=== PATIENT | male | born 1955 | race Caucasian/White ===

== ENCOUNTER 2016-05-12 19:45 | Emergency (ER) | payer OTHER ==
[2016-05-12 20:22] VITALS: RESP 18; O2SAT 93
--- NOTE | 2016-05-12 20:25 | EDPHY ---
H & P Stated Complaint: 10 day of cramping to legs at night wt loss Time Seen by Provider: 05/12/16 20:24 - Personal History Current Tetanus/Diphtheria Vaccine: Yes Current Tetanus Diphtheria and Acellular Pertussis (TDAP): Yes - Medical/Surgical History Hx Asthma: No Hx Chronic Respiratory Disease: No Hx Diabetes: No Hx Cardiac Disease: No Hx Renal Disease: No Hx Cirrhosis: No Hx Alcoholism: No Hx HIV/AIDS: No Hx Splenectomy or Spleen Trauma: No Other PMH: hernia - Social History Smoking Status: Former smoker Constitutional: Initial Vital Signs Temperature (C) 36.7 C 05/12/16 20:13 Heart Rate 112 H 05/12/16 20:13 Respiratory Rate 18 05/12/16 20:13 Blood Pressure 155/81 H 05/12/16 20:13 O2 Sat (%) 93 05/12/16 20:13 O2 Delivery Mode Room Air Allergies/Adverse Reactions: No Known Allergies Allergy (Unverified 05/17/12 16:58) Home Medications: Medication Instructions Recorded Lisinopril 05/12/16 Omeprazole 05/12/16 Medical Decision Making ED Course/Re-evaluation: CHIEF COMPLAINT: Hyperglycemia HISTORY OF PRESENT ILLNESS: This patient is a 70 year old male referred to the Emergency Department by Dr. Ruff for elevated blood sugar self-measured in the low 400s earlier today. He complains of bilateral leg cramping that prevents him from sleeping. He denies headache, urinary frequency, fatigue, or additional complaints. No pertinent medical history. REVIEW OF SYSTEMS: A 10 point review of systems was performed and is negative with the exception of the elements mentioned in the history of present illness. PHYSICAL EXAM: HR 112, BP 155/81, O2 Sat 93%, RR 18. Temp noted General Appearance: Alert, well hydrated, appropriate, and non-toxic appearing. Head: Atraumatic without scalp tenderness or obvious injury Eyes: Pupils equal, round, reactive to light and accommodation, EOMI, no trauma , no injection. Ears: Clear bilaterally, no perforation, normal landmarks Nose: Atraumatic, no rhinorrhea, clear. Throat: There is no erythema or exudates, no lesions, normal tonsils, mucus membranes moist. Neck: Supple, 2+ carotid upstroke, nontender, no lymphadenopathy. Respiratory: No retractions, no distress, no wheezes, and no accessory muscle use. Lungs are clear to auscultation bilaterally. Cardiovascular: Regular rate and rhythm, no murmurs, rubs, or gallops. Bilateral carotid, radial, dorsalis pedis, and posterior tibial pulses intact. Good capillary refill all extremities. Gastrointestinal: Abdomen is soft, nontender, non-distended, no masses, no rebound, no guarding, no peritoneal signs. Musculoskeletal: Normal active ROM of all extremities, atraumatic. Neurological: Alert, appropriate, and interactive. The patient has normal DTRs and non-focal cranial nerves, motor, sensory, and cerebellar exam. Skin: No rashes, good turgor, no nodules on palpation. Past medical and surgical history: Hernia. Family history: Non-contributory. Social history: at bedside. DIFFERENTIAL DIAGNOSIS: Differential diagnosis for the patient's hyperglycemia includes but is not limited to pre-diabetes, diabetes type II, or ketoacidosis. MEDICAL DECISION MAKING: This 60 year old male was referred to the Emergency Department by Dr. Ruff for hyperglycemia suggestive of diabetes. There is no evidence of ketoacidosis. He complains of leg cramping for which we will administer 1mg Ativan. Will proceed with labs and start the patient on oral hypoglycemics. He will be discharged home in good condition with instructions to follow-up with Dr. Ruff this week for further evaluation. No evidence of diabetic ketoacidosis. Hyperglycemia. I will start this patient on metformin 850 mg twice daily and he will follow up with Dr. Ritika Ruff on . - Data Points Laboratory Results: Laboratory Results 05/12/16 20:40 05/12/16 20:40 05/12/16 20:40 WBC 6.40 10^3/uL (3.80-9.50) RBC 4.59 10^6/uL (4.40-6.38) Hgb 15.1 g/dL (13.7-17.5) Hct 40.8 % (40.0-51.0) MCV 88.9 fL (81.5-99.8) MCH 32.9 pg (27.9-34.1) MCHC 37.0 H g/dL (32.4-36.7) RDW 12.5 % (11.5-15.2) Plt Count 141 L 10^3/uL (150-400) MPV 9.4 fL (8.7-11.7) Neut % (Auto) 49.0 % (39.3-74.2) Lymph % (Auto) 35.3 % (15.0-45.0) [place] % (Auto) 9.1 % (4.5-13.0) Eos % (Auto) 3.0 % (0.6-7.6) Baso % (Auto) 0.6 % (0.3-1.7) Nucleat RBC Rel Count 0.0 % (0.0-0.2) Absolute Neuts (auto) 3.14 10^3/uL (1.70-6.50) Absolute Lymphs (auto) 2.26 10^3/uL (1.00-3.00) Absolute Monos (auto) 0.58 10^3/uL (0.30-0.80) Absolute Eos (auto) 0.19 10^3/uL (0.03-0.40) Absolute Basos (auto) 0.04 10^3/uL (0.02-0.10) Absolute Nucleated RBC 0.00 10^3/uL (0-0.01) Immature Gran % 3.0 H % (0.0-1.1) Immature Gran # 0.19 H 10^3/uL (0.00-0.10) Sodium 130 L mEq/L (134-144) Potassium 4.2 mEq/L (3.5-5.2) Chloride 100 mEq/L (97-110) Carbon Dioxide 19 L mEq/l (22-31) Anion Gap 11 mEq/L (8-16) BUN 21 mg/dL (7-23) Creatinine 0.9 mg/dL (0.7-1.3) Estimated GFR > 60 Glucose 391 H mg/dL (70-100) Hemoglobin A1c Pending Estim Average Glucose Pending Calcium 9.1 mg/dL (8.5-10.4) Total Bilirubin 1.0 mg/dL (0.1-1.4) Conjugated Bilirubin 0.7 H mg/dL (0.0-0.5) Unconjugated Bilirubin 0.3 mg/dL (0.0-1.1) AST 76 H IU/L (17-59) ALT 100 H IU/L (21-72) Alkaline Phosphatase 98 IU/L (38-126) Total Protein 6.9 g/dL (6.3-8.2) Albumin 3.9 g/dL (3.5-5.0) Lipase 176.0 IU/L (23-300) Departure - Departure Disposition: Home, Routine, Self-Care Clinical Impression: Hyperglycemia Condition: Good Instructions: Diabetic Hyperglycemia (ED) Additional Instructions: 1. Take Metformin as directed to treat your elevated blood sugar. 2. Schedule a follow-up appointment to see Dr. Ruff later this week. 3. Return to the Emergency Department if you experience dizziness, confusion, lethargy, shortness of breath, shakiness, or other serious concerns. Referrals: Javon Ruff MD [Primary Care Provider] - As per Instructions Report Scribed for: Ricardo Ferrari Report Scribed by: Gwendolyn Moffett Date of Report: 05/12/16 Time of Report: 20:27
[2016-05-12 20:46] LABS: ABSOLUTE IMMATURE GRANULOCYTES 0.19 10^3/uL (0.00-0.10); ADD DIFF? NO; ADD MORPH? NO; ADD SCAN? NO; ATYPICAL LYMPHOCYTE FLAG 10 (0-99); FRAGMENT RBC FLAG 0 (0-99); HEMATOCRIT 40.8 % (40.0-51.0); HEMOGLOBIN 15.1 g/dL (13.7-17.5); LEFT SHIFT FLG 20 (0-99); LIPEMIA HEMOLYSIS FLAG 90 (0-99); MEAN CELL HEMOGLOBIN 32.9 pg (27.9-34.1); MEAN CELL VOLUME 88.9 fL (81.5-99.8); MEAN PLATELET VOLUME 9.4 fL (8.7-11.7); PLATELET CLUMPS FLAG 10 (0-99); PLATELET COUNT 141 10^3/uL (150-400); RED BLOOD CELL COUNT 4.59 10^6/uL (4.40-6.38); RED CELL DISTRIBUTION WIDTH 12.5 % (11.5-15.2)
[2016-05-12 21:08] LABS: ALANINE AMINOTRANSFERASE 100 IU/L (21-72); ALBUMIN 3.9 g/dL (3.5-5.0); ALKALINE PHOSPHATASE 98 IU/L (38-126); ANION GAP 11 mEq/L (8-16); ASPARTATE AMINOTRANSFERASE 76 IU/L (17-59); BILIRUBIN-CONJUGATED 0.7 mg/dL (0.0-0.5); BILIRUBIN-UNCONJUGATED 0.3 mg/dL (0.0-1.1); CALCIUM 9.1 mg/dL (8.5-10.4); CARBON DIOXIDE 19 mEq/l (22-31); CHLORIDE 100 mEq/L (97-110); CREATININE 0.9 mg/dL (0.7-1.3); GLOMERULAR FILTRATION RATE > 60; GLUCOSE 391 mg/dL (70-100); POTASSIUM 4.2 mEq/L (3.5-5.2); SODIUM 130 mEq/L (134-144); TOTAL PROTEIN 6.9 g/dL (6.3-8.2)
[2016-05-12] MEDS ORDERED: metFORMIN HCL 850 MG TAB PO ONE (21:19)
[2016-05-12 21:22] LABS: HEMOGLOBIN A1C 11.2 % (4.0-6.0)
[2016-05-12] MEDS ORDERED: LORAZEPAM 1 MG PREPACK#4 BTL TAKEHOME ONE ×2 (21:23→21:25)
[2016-05-12 21:38] VITALS: BP 125/86; PULSE 101; TEMP 98.2
== END 2016-05-12 22:02 | disposition home or self-care (01) ==
DX: R73.9 Hyperglycemia, unspecified (principal); Z87.891 Personal history of nicotine dependence